=== PATIENT | female | born 1950 ===

== ENCOUNTER 2016-11-26 16:40 | Emergency (ER) | payer MEDICARE, OTHER ==
[2016-11-26] MEDS ORDERED: IOPAMIDOL 370 (76%) 100 ML VIAL IV ONE (16:41)
[2016-11-26 17:20] LABS: ABSOLUTE NEUTROPHIL COUNT 4.9 K/mm3 (1.8-7.7); BASO % 0.3 % (0.2-1.0); EOS # 0.1 (0.0-0.5); EOS % 0.9 % (0.9-2.9); HEMATOCRIT 39.4 % (37.0-47.0); HEMOGLOBIN 12.7 gm/l (12.0-16.0); IMM NEUT% 0.3 % (0-1); LYMPH # 3.1 (1.0-4.8); LYMPH % 35.7 % (15-45); MEAN CELL VOLUME 92.7 fl (81.0-99.0); MEAN CORPUSCULAR HEMOGLOBIN 29.9 pg (27.0-31.0); MEAN CORPUSCULAR HGB CONC 32.2 g/dl (33.0-37.0); MEAN PLATELET VOLUME 10.2 fl (7.4-10.4); MONO # 0.6 (0.0-0.8); MONO % 6.6 % (4-12); NEUT % 56.2 % (43-75); PLATELET COUNT 305 K/mm3 (130-400); RED CELL DISTRIBUTION WIDTH 11.8 % (11.5-14.5)
[2016-11-26 17:34] LABS: ALB/GLOB RATIO 1.1 (>1.0); ALBUMIN 4.7 gm/dL (3.5-5.7); CALCIUM 9.7 mg/dL (8.6-10.3)
--- NOTE | 2016-11-26 18:34 | CT ---
HEAD W/O CON History: Left-sided facial droop with right-sided eye droop for 36 hours. Comparison: None. Procedure: 1 mm axial images were obtained through the head from the vertex to the base of the skull without intravenous contrast. Stacked reconstructed 5 mm images were then obtained in the axial, coronal and sagittal planes. Findings: There are metallic implants identified involving the bilateral inferior parietal regions with associated artifact. These extend only into the calvarium without extension into the brain parenchyma itself. The lateral ventricular size is appropriate. No evidence of midline shift is seen. No mass or mass effect is identified. No evidence of intra or extra-axial fluid collections or hemorrhage is seen. The shane-white differentiation is relatively well-preserved. The basilar cisterns are uneffaced. The posterior fossa structures are unremarkable. Lung windows demonstrate no acute osseous abnormalities. Impression: 1. Bilateral posterior parietal metallic calvarial implants. 2. An otherwise negative unenhanced CT scan of the head.
--- NOTE | 2016-11-26 18:41 | CT ---
CTA HEAD W/ POST PROCESS History: Facial droop and I droop. Comparison: None. Procedure: 1 mm axial images were obtained through the head following the administration of 80cc's of Isovue-370 intravenous contrast. Stacked reconstructed 3 mm images were then photographed in the axial, coronal and sagittal planes. 3-D reconstructed images were also performed on the scanner workstation. Findings: There is a normal appearance of the visualized intracranial carotid arteries. The middle and anterior cerebral branches are appropriate. No focal stenosis or aneurysm is seen. Evaluation of the posterior circulation demonstrates a slightly dominant left vertebral artery. The basilar artery is of normal caliber. No basilar tip aneurysm is seen. The posterior cerebral vessels appear to be appropriate. Note is made of metallic calvarial implants within the posterior parietal regions. Impression: 1. A negative CT angiogram of the head.
--- NOTE | 2016-11-26 18:46 | CT ---
CTA CAROTID W/ POST PROCESS History: Facial and eye droop. Comparison: None. Procedure: 1 mm axial images were obtained through the neck following the administration of 80cc's of Isovue-370 intravenous contrast. Stacked reconstructed 3 mm images were then photographed in the axial, coronal and sagittal planes. 3-D reconstructed images were also performed on the scanner workstation. Findings: Images demonstrate a normal appearance of the visualized superior mediastinum. No enlarged mediastinal adenopathy is visualized. The thyroid gland appears to be mildly enlarged with numerous subcentimeter suggested thyroid nodules. No enlarged cervical chain adenopathy is visualized. The visualized lung parenchyma appears to be appropriate with the exception of a large calcified granuloma within the left pulmonary apex.. The central airways are intact. The aorta appears to be of normal caliber with minimal atherosclerotic thoracic calcification. The subclavian arteries and the innominate artery appear to be appropriate. Evaluation of the left carotid artery demonstrates a normal course and caliber of the common carotid artery. There is minimal calcific plaque seen at the bifurcation without evidence of a significant stenosis. The distal portion of the internal carotid vessel are unremarkable. The right common carotid artery also demonstrates a normal course and caliber. There is a small amount of soft plaque seen within the right carotid bulb extending into the external carotid artery. No significant stenosis is visualized. The distal portions of the internal carotid vessel on the right are appropriate. The vertebral arteries are patent. The left radial artery is mildly dominant. The course and caliber of both vertebral arteries is unremarkable. The visualized basilar artery is normal. Impression: 1. Minimal atherosclerotic disease involving both carotid bifurcations. No significant carotid stenosis is observed. 2. A mildly enlarged thyroid gland with multiple suggested subcentimeter bilateral thyroid nodules. 3. Evidence of granulomatous disease with a left hemithorax calcified granuloma.
[2016-11-26 18:56] LABS: URINE BILIRUBIN NEGATIVE (NEGATIVE); URINE BLOOD NEGATIVE (NEGATIVE); URINE GLUCOSE (UA) NEGATIVE (NEGATIVE); URINE LEUKOCYTE ESTERASE 1+ (NEGATIVE); URINE NITRITE NEGATIVE (NEGATIVE); URINE PROTEIN NEGATIVE (NEGATIVE); URINE UROBILINOGEN NORMAL (0-1 mg/dl)
[2016-11-26 19:26] LABS: URINE APPEARANCE SL CLOUDY; URINE COLOR YELLOW
[2016-11-26 19:33] LABS: URINE BACTERIA RARE; URINE EPITHELIAL CELLS 0-1 /hpf; URINE RBC 0 /hpf; URINE WBC 0-3 /hpf
[2016-11-26] MEDS ORDERED: DIPHENHYDRAMINE HCL 50 MG/1 ML VIAL ONE (19:44)
[2016-11-26] MEDS ORDERED: METOCLOPRAMIDE HCL 5 MG/ML 2ML VIAL ONE (19:44)
[2016-11-26] MEDS ORDERED: KETOROLAC TROMETHAMINE 15 MG/ML VIAL ONE (19:44)
== END 2016-11-26 20:46 | disposition home or self-care (01) ==
LOC: ED 16:40
DX: R29.810 Facial weakness (principal); R51 Headache; H53.8 Other visual disturbances

== ENCOUNTER 2016-11-27 21:23 | Emergency (ER) | payer MEDICARE, OTHER | END 2016-11-28 00:19 | disposition home or self-care (01) | LOC: ED 21:23 | DX: R00.2 Palpitations (principal); G51.0 Bell's palsy ==